=== PATIENT | male | born 1945 | race Caucasian/White ===

== ENCOUNTER 2021-03-13 00:56 | Day surgery (SDC) | payer MEDICARE, SELFPAY ==
[2021-03-01 14:30] VITALS: BMI 21.8
--- NOTE | 2021-03-13 07:02 | WPDANESEPPF ---
Anes - Initial Pre Proc Eval Procedure: Operation Date: 03/13/21 09:30 Proposed Procedures p Screening Colonoscopy - Juan R Dunaway MD Date/Time: 03/13/21 07:02 Surgeon: Juan R Dunaway MD Pre Op Diagnosis: hx of colon polyps Patient Data Age: 76 Gender: M Height: 1.83 m Weight: 73 kg Allergies Allergy/AdvReac Type Severity Reaction Status Date / Time SYNTHETIC NARCOTICS AdvReac Mild CONSTIPATIO Uncoded 03/13/21 08:56 N OPIOIDS AdvReac Unknown Other Uncoded 03/13/21 08:56 Home Medications Medication Instructions Recorded Confirmed Type atorvastatin 40 mg PO DAILY 03/01/21 03/13/21 History lutein 10 mg PO DAILY 03/01/21 03/13/21 History lycopene 20 mg PO DAILY 03/01/21 03/13/21 History multivitamin [Men's Multi-Vitamin] 1 tablet PO DAILY 03/01/21 03/13/21 History Patient hx anesthesia problems: none Family hx anesthesia problems: none PMFSH Past Medical History Medical History Hyperlipidemia Surgical History Surgical History History of appendectomy Social History Social History Years smoked: 4 Smoking status: Current every day smoker Tobacco type: cigarettes Alcohol intake: never Substance use: never Substance use type: does not use Living arrangements: with family Spiritual care concerns: No Anes - Eval Final PreProcedure Day of Procedure 03/13/21 07:02 Patient weight: normal Heart: regular rate and rhythm Lungs: clear to auscultation and normal air movement Airway: Mallampati scale class 1 Neurological: alert and oriented Last oral intake: >/= 8 hours ASA classification: II Emergent: no Anesthetic plan: proceed Anesthesia type and monitoring: general GIVS and standard monitoring Informed Consent: The patient's anesthetic plan and its attendant risks and benefits were discussed with the patient/family/POA. Questions were solicited and answers provided to the satisfaction of the patient/family/POA.
--- NOTE | 2021-03-13 07:20 | PM.HPGS ---
History of Present Illness History of Present Illness Consent: Risks, benefits, and alternatives have been discussed and questions answered. Patient agrees to proceed with procedure. Chief complaint: hx of colon polyps Narrative: Jay Jay Oden is a 76 year old male history of colon polyps his last colonoscopy was 5 years ago Review of Systems Review of Systems: All systems reviewed & are unremarkable except as noted in HPI and below PMFSH Past Medical History Medical History Hyperlipidemia Surgical History Surgical History History of appendectomy Social History Social History Years smoked: 4 Smoking status: Current every day smoker Tobacco type: cigarettes Alcohol intake: never Substance use: never Substance use type: does not use Living arrangements: with family Spiritual care concerns: No Meds Home Medications and Allergies Home Medications Medication Instructions Recorded Confirmed Type atorvastatin 40 mg PO DAILY 03/01/21 03/13/21 History lutein 10 mg PO DAILY 03/01/21 03/13/21 History lycopene 20 mg PO DAILY 03/01/21 03/13/21 History multivitamin [Men's Multi-Vitamin] 1 tablet PO DAILY 03/01/21 03/13/21 History Allergies Allergy/AdvReac Type Severity Reaction Status Date / Time SYNTHETIC NARCOTICS AdvReac Mild CONSTIPATIO Uncoded 03/13/21 08:56 N OPIOIDS AdvReac Unknown Other Uncoded 03/13/21 08:56 Exam Resp: Auscultation: clear to auscultation bilaterally Cardio: Rate: regular rate Rhythm: regular rhythm GI: GI Palp: Yes Soft to palpation and No Tenderness to palpation present (GI) Assessment and Plan Assessment and plan (1) Colon cancer screening: Code(s): Z12.11 - Encounter for screening for malignant neoplasm of colon Status: Acute Assessment and Plan: Colonoscopy with possible biopsy or polypectomy or cautery or injection of substances.
[2021-03-13 09:00] VITALS: BP 124/91; PULSE 88; RESP 20; TEMP 36; O2SAT 96; BMI 21.5
[2021-03-13] MEDS: LACTATED RINGERS 1,000 ML 150 ML IV CONT (09:22)
[2021-03-13 09:52] VITALS: BP 104/67; PULSE 59; RESP 16; O2SAT 95
[2021-03-13 10:02] VITALS: BP 106/65; PULSE 60; RESP 20; O2SAT 97
[2021-03-13 10:12] VITALS: BP 113/78; PULSE 62; RESP 18; O2SAT 98
== END 2021-03-13 10:30 | disposition home or self-care (01) ==
PROVIDERS: PCP Internal Medicine; Visit Provider Internal Medicine Gastroenterology
PROC: 0DJD8ZZ Inspection of Lower Intestinal Tract, Via Natural or Artificial Opening Endoscopic (ICD-10-PCS; CPT 45378; principal; 2021-03-13 09:30)
DX: Z12.11 Encounter for screening for malignant neoplasm of colon (principal); Z86.010 Personal history of colon polyps; K57.30 Diverticulosis of large intestine without perforation or abscess without bleeding; Z98.0 Intestinal bypass and anastomosis status; K64.8 Other hemorrhoids; E78.5 Hyperlipidemia, unspecified; F17.210 Nicotine dependence, cigarettes, uncomplicated
CPT/HCPCS: G0105; J2704; J7120

== ENCOUNTER 2021-12-17 06:36 | Emergency (ER) | payer MEDICARE, SELFPAY ==
[2021-12-17 06:39] VITALS: BP 128/79; PULSE 79; RESP 18; TEMP 35.9; O2SAT 97
[2021-12-17 07:19] VITALS: BP 137/92; PULSE 74; RESP 14; O2SAT 97
--- NOTE | 2021-12-17 07:38 | ED.GENADULT ---
HPI - General Adult General Chief complaint: Neck Pain/Injury Stated complaint: Neck Pain Time Seen by Provider: 12/17/21 06:52 History of Present Illness HPI narrative: 76-year-old male presenting to the emergency department for evaluation of lateral neck pain. Patient states when he woke up on Saturday he was having some right-sided neck pain that ultimately radiated to the left lateral neck and left shoulder. Patient states the pain is worse when he woke up. Patient does report lateral pain when turning his head to the left. Patient denies any associated numbness or weakness. Patient denies any falls or injuries. Patient states the pain exacerbated when he tried to sit up. Patient denies any falls or injuries. Patient denies any associated numbness or weakness. Related Data Home Medications Medication Instructions Recorded Confirmed atorvastatin 40 mg tablet 40 mg PO DAILY 03/01/21 03/13/21 lutein 10 mg tablet 10 mg PO DAILY 03/01/21 03/13/21 lycopene 20 mg PO DAILY 03/01/21 03/13/21 multivitamin 1 tablet PO DAILY 03/01/21 03/13/21 Allergies Allergy/AdvReac Type Severity Reaction Status Date / Time SYNTHETIC NARCOTICS AdvReac Mild CONSTIPATIO Uncoded 12/17/21 06:43 N OPIOIDS AdvReac Unknown Other Uncoded 12/17/21 06:43 Review of Systems Review of Systems: CONSTITUTIONAL: Denies fever, chills, or sweats. EYES: Denies visual changes, redness, or discharge. ENT: Denies rhinorrhea, congestion, sore throat, or otalgia. CARDIOVASCULAR: Denies chest pain, palpitations, or edema. RESPIRATORY: Denies cough or dyspnea. GASTROINTESTINAL: Denies abdominal pain, nausea, vomiting, or diarrhea. GENITOURINARY: Denies dysuria or hematuria. SKIN: Denies rash or itching. MUSCULOSKELETAL: See HPI NEUROLOGIC: Denies headache, numbness, or weakness. [facility] Past Medical History Medical History Hyperlipidemia Surgical History Surgical History History of appendectomy Social History Social History Years smoked: 4 Smoking status: Current every day smoker Tobacco type: cigarettes Alcohol intake: never Substance use: never Substance use type: does not use Spiritual care concerns: No Exam Narrative: APPEARANCE: Well appearing, no pain, no distress, well-nourished. HEAD: normocephalic, atraumatic. EYES: PERRLA/EOMI, conjunctivae clear. NOSE: Normal no drainage NECK: Supple. No adenopathy, no masses. RESPIRATORY: Airway patent, respirations nonlabored. Clear to auscultation bilaterally, no rales, rhonchi, wheezing. CARDIOVASCULAR: Regular rate and rhythm without murmurs rubs or gallops. ABDOMINAL: Soft, nontender, nondistended, normal bowel sounds MUSCULOSKELETAL: No midline tenderness to palpation. Patient has tenderness to the lateral neck muscles. NEURO: Alert. Cranial nerves II through XII intact. Neurologically intact SKIN: Warm, dry. Normal Color Course Course Emergency Course: Patient was updated on the treatment plan. All question concerns were addressed. Vital Signs Vital signs: Vital Signs Temperature 96.7 F L 12/17/21 06:39 Pulse Rate 79 12/17/21 06:39 Respiratory Rate 18 12/17/21 06:39 Blood Pressure 128/79 12/17/21 06:39 Pulse Oximetry 97 12/17/21 06:39 Oxygen Delivery Room Air 12/17/21 06:39 Temperature 96.7 F L 12/17/21 08:25 Pulse Rate 74 12/17/21 07:19 Respiratory Rate 14 12/17/21 07:19 Blood Pressure 137/92 H 12/17/21 07:19 Pulse Oximetry 97 12/17/21 07:19 Oxygen Delivery Room Air 12/17/21 06:39 Medical Decision Making Vital Signs Vital Signs: Vital Signs Temperature 96.7 F L 12/17/21 06:39 Pulse Rate 79 12/17/21 06:39 Respiratory Rate 18 12/17/21 06:39 Blood Pressure 128/79 12/17/21 06:39 Pulse Oximetry 97 12/17/21 06:39 Oxygen Delivery Room Air 12/17/21
[2021-12-17] MEDS: CYCLOBENZAPRINE HCL 10 MG TABLET PO (07:51)
[2021-12-17] MEDS: KETOROLAC 30 MG/ML VIAL (*BKC) IM (07:52)
[2021-12-17] MEDS: HYDROcodone/acetaminophen (*CRX) 5-325 MG TABLET 1 TAB PO (07:56)
[2021-12-17 08:25] VITALS: TEMP 35.9
== END 2021-12-17 08:25 | disposition home or self-care (01) ==
PROVIDERS: Emergency Provider Emergency Medicine; PCP Internal Medicine
DX: M43.6 Torticollis (principal); S16.1XXA Strain of muscle, fascia and tendon at neck level, initial encounter; E78.5 Hyperlipidemia, unspecified; F17.210 Nicotine dependence, cigarettes, uncomplicated; X58.XXXA Exposure to other specified factors, initial encounter
CPT/HCPCS: 96372; 99283; A9270; J1885

== ENCOUNTER 2023-01-09 07:11 | Emergency (ER) | payer MEDICARE, SELFPAY ==
[2023-01-09] VITALS (24 sets, daily range): BP systolic 79–138; BP diastolic 37–109; PULSE 40–75; RESP 14–30; O2SAT 84–98
--- NOTE | 2023-01-09 | ECG_ITS ---
Measurements Intervals [place] Rate: 59 P: 40 [place]: 194 QRS: 49 QRSD: 107 T: 63 QT: 486 QTc: 483 Interpretive Statements SINUS BRADYCARDIA WITH OCCASIONAL VENTRICULAR PREMATURE COMPLEXES MINIMAL ST DEPRESSION [0.025+ mV ST DEPRESSION] PROLONGED QT INTERVAL ABNORMAL ECG NO PREVIOUS ECG AVAILABLE FOR COMPARISON Electronically Signed On 01-09-2023 11:59:18 CDT by Vipul Burrows M.D.
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
--- NOTE | ~2023-01-09 | XR_ITS ---
Supine portable view of the abdomen Clinical history: NG tube placement Findings: NG tube is in satisfactory position. Bowel gas pattern is nonspecific. No evidence for obst ruction or free air. No abnormal mass lesion or calcification is seen. Osseous structures are intact. Impression: NG tube in satisfactory position. Reviewed, dictated and finalized at [facility]. Impression: NG tube in satisfactory position.
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
--- NOTE | 2023-01-09 07:15 | PC.NURSE ---
DR SALINAS AT BEDSIDE ON PT'S ARRIVAL. 10 ETOMIDATE @ 0716 100 KHADIJAH @ 0716 INTUBATED 7.5 26@ LIP @0703
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
--- NOTE | 2023-01-09 07:42 | PC.NURSE ---
PT TO CT
--- NOTE | 2023-01-09 07:55 | PC.NURSE ---
PT BACK FROM CT
[2023-01-09 07:56] LABS: Basophils Percent Auto 0.3 % (0.2-1.2); Eosinophils Absolute Auto 0.1 K/mm3 (0-0.3); Eosinophils Percent Auto 0.9 % (0-4.4); Hemoglobin 12.7 g/dL (14.0-18.0); Immature Granulocyte Absolute 0.02 K/mm3 (0.00-0.031); Immature Granulocyte Percent A 0.3 % (0-0.5); Lactic Acid Reflex 3.8 mmol/L (0.7-2.0); Lymphocytes Absolute Auto 1.63 K/mm3 (0.9-3.2); Lymphocytes Percent Auto 25.5 % (18.3-44.2); Mean Corpuscular HGB Conc 33.4 g/dl (32-36); Mean Corpuscular Hemoglobin 34.6 pg (26-34); Mean Corpuscular Volume 103.5 fl (80-100); Mean Platelet Volume 9.3 fl (7.4-10.4); Monocytes Absolute Auto 0.4 K/mm3 (0.1-0.6); Monocytes Percent Auto 5.8 % (2.6-8.5); Neutrophils Absolute Auto 4.3 K/mm3 (1.3-6.7); Neutrophils Percent Auto 67.2 % (45.5-73.1); Platelet Count Result 138 k/mm3 (150-375); Red Blood Count 3.67 M/mm3 (4.6-6.20); Red Cell Distribution Width 12.3 % (11.5-14.5); White Blood Count 6.4 K/mm3 (4.5-10.0)
[2023-01-09 07:57] LABS: Alanine Aminotransferase 29 U/L (6-50); Albumin Level 3.5 g/dL (3.5-5.1); Alkaline Phosphatase 56 U/L (38-126); Anion Gap 9 mmol/L (8-16); Aspartate Amino Transferase 36 U/L (17-59); Bilirubin,Total 0.9 mg/dL (0.2-1.3); Blood Urea Nitrogen 24 mg/dL (9-20); Calcium 8.2 mg/dL (8.4-10.2); Carbon Dioxide 26 mmol/L (22-30); Chloride 106 mmol/L (98-107); Estimated Glomerular Filt Rate > 60; Glucose 135 mg/dL (65-110); Potassium 3.4 mmol/L (3.4-5.0); Sodium 141 mmol/L (137-145)
[2023-01-09 07:59] LABS: INR 1.3; Prothrombin Time 16.6 Seconds (11.1-14.7)
[2023-01-09 08:00] LABS: Partial Thromboplastin Time 31.8 SECONDS (22.3-36.8)
[2023-01-09 08:01] LABS: Triglycerides 89 mg/dL (<150)
[2023-01-09 08:09] LABS: Troponin I < 0.012 ng/mL (0.000-0.034)
--- NOTE | 2023-01-09 08:15 | PC.NURSE ---
MELODIE SIMMONS PLACED ON PT
[2023-01-09 08:19] LABS: Appearance Urine Clear (Clear); Bacteria Urine None Seen /hpf; Bilirubin Urine Negative (Negative); Blood Urine Trace (Negative); Color Urine Yellow (Yellow); Glucose Urine UA Negative (Negative); Hyaline Casts Urine Present /lpf; Ketones Urine Negative (Negative); Leukocyte Esterase Ur Negative LEU/UL (Negative); Nitrate Urine Negative (Negative); Protein Urine Negative (Negative); Specific Grav Ur 1.015 (1.001-1.035); Squamous Epithelial Cell Urine None seen /hpf (Few); Urobilinogen Urine 0.2 mg/dL (<2.0); WBC Urine 0-5 /hpf; pH Urine 5.5 (5.0-9.0)
[2023-01-09 08:20] LABS: Add Urine Microscopic? YES
[2023-01-09] MEDS: SODIUM CHLORIDE 0.9% IV 1,000 ML 999 ML IV CONT ×2 (08:20→10:20)
[2023-01-09 08:28] LABS: Phosphorus 3.5 mg/dL (2.5-4.5)
[2023-01-09] MEDS: MAGNESIUM SULF 2 GM/WATER 50ML 2 GM/50 ML BAG IVPB (08:32)
[2023-01-09 08:33] LABS: Alveolar/Arterial O2 Gradient 411.6 mmHg; Base Excess ABG -2.3 mEq/l (+/-2.0); Carboxyhemoglobin 0.3 % THb (0-2.0); Fractional Inspired Oxygen 100 %; HCO3 ABG 25.8 mEq/l (22.0-26.0); Methemoglobin ABG 0.3 %THb (0-1.5); Oxygen Content ABG 18.5 %vol (16.0-22.0); Oxygen Saturation ABG 99.4 % (95.0-100.0); Oxyhemoglobin 97.3 % THb (90.0-100.0); PCO2 ABG 59.6 mmHg (35.0-45.0); PO2 ABG 241.8 mmHg (80.0-100.0); PO2 FiO2 Ratio Arterial Blood 2.42 %; Reduced Hemoglobin 2.1 %THb (0-5.0); Total Hemoglobin 13.1 g/dL (12.0-18.0)
[2023-01-09] MEDS: Please add drug allergy info to patient profile. 1 EACH XX (08:34)
[2023-01-09 08:37] LABS: Site Drawn LEFT BRACHIAL; pH ABG 7.255 (7.350-7.450)
[2023-01-09 08:38] LABS: Device VENTILATOR
[2023-01-09 08:39] LABS: Arterial Blood Gas PEEP 5 cmH2O; Arterial Blood Gas Tidal Volume 500 ml; Arterial Blood Gas Vent Mode CMV; Arterial Blood Gas Ventilator rate 16 /MIN
[2023-01-09 08:40] LABS: Arterial Blood Gas Pressure Support 0 cmH2O
--- NOTE | 2023-01-09 08:46 | PC.NURSE ---
PT TO CT
--- NOTE | 2023-01-09 09:10 | PC.NURSE ---
BACK FROM CT
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
[2023-01-09] MEDS: AMPICILLIN SULB 1.5 GM/NS 50ML 1.5 GM/50 ML VIAL IVPB (10:03)
[2023-01-09] MEDS: MIDAZOLAM HCL (*CRX) 2 MG/2 ML VIAL 5 MG IV PUSH (10:03)
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
[2023-01-09 10:42] LABS: Reflex Lactic Acid Yes or No Add Lactic
== END 2023-01-09 10:24 | disposition short-term general hospital (02) ==
PROVIDERS: Emergency Provider Emergency Medicine; PCP Internal Medicine
DX: I71.011 Dissection of aortic arch (principal); R40.4 Transient alteration of awareness
CPT/HCPCS: 31500; 36415; 36600; 51702; 70450; 70496; 70498; 71275; 74174; 80053; 81001; 82375; 82805; 83050; 83605; 83735; 84100; 84443; 84478; 84484; 85025; 85610; 85730; 86850; 86900; 86901; 93005; 96365; 96367; 96375; 99291; J0295; J2250; J3010; J3475; J7030; Q9967